=== PATIENT | female | born 1985 | race Caucasian/White ===

== ENCOUNTER 2021-01-12 23:55 | Observation (INO) | payer OTHER ==
[~2021-01-12] VITALS: Ht 167.6 cm; Wt 61.2 kg
[2021-01-13 01:02] LABS: HEMOGLOBIN 15.5 gm/dl (12.3-15.3); RED BLOOD COUNT 4.89 M/UL (4.00-5.10); WHITE BLOOD COUNT 8.5 K/UL (4.5-11.0)
[2021-01-13 01:38] LABS: BUN/CREATININE RATIO 6 (0-10)
--- NOTE | 2021-01-13 13:50 | NUR ---
unable to obatain patient history due to patients dowsiness.
[2021-01-14 08:49] LABS: HEMOGLOBIN 13.9 gm/dl (12.3-15.3); RED BLOOD COUNT 4.41 M/UL (4.00-5.10); WHITE BLOOD COUNT 8.1 K/UL (4.5-11.0)
[2021-01-14 09:04] LABS: BUN/CREATININE RATIO 9 (0-10)
[2021-01-14] MEDS ORDERED: KEFLEX CAP 250250 MG PO (14:28)
== END 2021-01-14 16:42 | disposition home or self-care (01) ==
LOC: ER1 23:55 → CDU 01-13 09:23 → MED SURG 4 01-13 12:33
PROVIDERS: Emergency Medicine; Physician Assistant; ADMIT Internal Medicine
DX: T43.621A Poisoning by amphetamines, accidental (unintentional), initial encounter (principal); G92 Toxic encephalopathy; F15.10 Other stimulant abuse, uncomplicated; N30.00 Acute cystitis without hematuria; L03.115 Cellulitis of right lower limb; E87.6 Hypokalemia; F17.200 Nicotine dependence, unspecified, uncomplicated; Z20.822 Contact with and (suspected) exposure to COVID-19
CPT/HCPCS: 36415; 51701; 70450; 71045; 74018; 80053; 80307; 81001; 82550; 82553; 83605; 83690; 83735; 83874; 84132; 84484; 84703; 85025; 86140; 87040; 93005; 96365; 96367; 96368; 96372; 96375; 96376; 99285; G0378; G0480; J0696; J1630; J2060; J3370; J3480; J3486; J7030; J7070; U0002

== ENCOUNTER 2021-01-18 17:16 | Emergency (ER) | payer OTHER ==
[~2021-01-18 17:16] MED LIST: KEFLEX CAP 250250 MG PO
== END 2021-01-18 18:00 | disposition left against medical advice (07) ==
LOC: ER1 17:16
DX: Z53.21 Procedure and treatment not carried out due to patient leaving prior to being seen by health care provider (principal)
CPT/HCPCS: 93005; 99281